=== PATIENT | female | born 1945 | race Caucasian/White ===

== ENCOUNTER 2018-03-08 10:27 | Observation (INO) | payer MEDICARE ==
[2018-03-08 11:26] LABS: Hemoglobin 12.3 gm/dL (12.5-16.0); Mean Cell Volume 95.2 fl (78-100); Mean Corpuscular Hemoglobin 30.8 pg (27-31); Mean Corpuscular Hgb Conc 32.4 g/dl (32-36); Mean Platelet Volume 8.8 fl (8-12.5); Neutrophil # 15.8 K/mm3 (1.3-6.0); Neutrophil % 86.8 % (42-75.0); Platelet Count 175 K/mm3 (150-450); Red Blood Count 3.99 M/mm3 (4.2-5.4); Red Cell Distribution Width 13.3 % (11.5-14.0); White Blood Count 18.2 K/mm3 (4.0-10.5)
[2018-03-08 11:32] LABS: Albumin * 3.3 gm/dl (3.4-5.0); BUN/Creatinine Ratio 13.2 (9.0-21.6); Bilirubin, Total 0.9 mg/dL (0.0-1.1); Ca. Corrected For Albumin 9.6 mg/dL (8.4-10.2); Calcium * 9.4 mg/dL (7.9-10.9); Carbon Dioxide 27.1 mmol/L (24-32.6); Potassium 3.1 mmol/L (3.4-4.6); Total Protein 7.5 gm/dL (6.2-8.2)
[2018-03-08] MEDS ORDERED: NORMAL SALINE 1,000 ML IV ONE (11:56)
[2018-03-08 12:05] LABS: Urine Appearance Cloudy (CLEAR); Urine Color Yellow
[2018-03-08 12:08] LABS: Urine Bilirubin Negative (NEGATIVE); Urine Ketone Negative (NEGATIVE)
[2018-03-08 12:09] LABS: Urine Blood 150 /ul (NEGATIVE); Urine Nitrite Negative (NEGATIVE); Urine Specific Gravity 1.015 SP.GR. (1.005-1.010); Urine Urobilinogen Normal (NORMAL); Urine WBC >50 /hpf (0-5)
[2018-03-08 12:10] LABS: Urine Bacteria 1+; Urine Protein 30 mg/dL (NEGATIVE); Urine RBC >50 /hpf (0-5)
[2018-03-08] MEDS ORDERED: cefTRIAXone SODIUM 1,000 MG/100 ML BAG IV ONE (12:23)
--- NOTE | 2018-03-08 12:33 | ERNOTE ---
Medical Problem HPI - Narrative Date of Service: 03/08/18 - General Chief Complaint: Fever Time Seen by Provider: 03/08/18 10:49 Source: patient Exam Limitations: no limitations - Immun/Allergies/Home Medications Immunizations: IMMUNIZATION HX Immunizations Up to Date Yes History of Influenza Vaccine Yes Hx Pneumococcal Vaccination Yes Allergies/Adverse Reactions: Allergies aspirin Allergy (Intermediate, Verified 03/08/18 10:45) Swelling of Tongue acetaminophen [From Percocet] Allergy (Mild, Verified 03/08/18 10:45) Itching chlordiazepoxide Allergy (Mild, Verified 03/08/18 10:45) Hives clidinium bromide [From Librax (with clidinium)] Allergy (Mild, Verified 03/08/18 10:45) Hives tamoxifen Adverse Reaction (Severe, Verified 03/08/18 10:45) Blood clot prochlorperazine edisylate [From Compazine] Adverse Reaction (Intermediate, Verified 03/08/18 10:45) PSEUDO SEIZURES prochlorperazine maleate [From Compazine] Adverse Reaction (Intermediate, Verified 03/08/18 10:45) PSEUDO SEIZURES ampicillin Adverse Reaction (Mild, Verified 03/08/18 10:45) Itching cefaclor [Cefaclor] Adverse Reaction (Mild, Verified 03/08/18 10:45) JOINT SWELLING ergocalciferol (vitamin D2) [From Calciferol] Adverse Reaction (Mild, Verified 03/08/18 10:45) itching with vit d3 erythromycin base [Erythromycin Base] Adverse Reaction (Mild, Verified 03/08/18 10:45) STOMACH CRAMPS levofloxacin Adverse Reaction (Mild, Verified 03/08/18 10:45) JOINT SWELLING morphine Adverse Reaction (Mild, Verified 03/08/18 10:45) Vomiting oxycodone HCl [From Percocet] Adverse Reaction (Mild, Verified 03/08/18 10:45) Itching prednisone Adverse Reaction (Mild, Verified 03/08/18 10:45) JOINT SWELLING Jqcsewz-Qid-Phl Reductase Inhibitor Adverse Reaction (Mild, Verified 03/08/18 10:45) MUSCLE ACHES Home Medications: HOME MEDICATIONS Lactase 3,000 unit PO TID PRN 08/05/13 [Last Taken 12/17/13 08:00] Multivitamin [Multi-Vitamin Daily] 1 ea PO DAILY 08/05/13 [Last Taken 12/17/13 08:00] Ascorbic Acid [Vitamin C] 1,000 mg PO DAILY 09/06/13 [Last Taken 12/17/13 08:00] Glucosamine/D3/Boswellia Sol [Osteo Bi-Flex Caplet] 1 ea PO BID 10/07/13 [Last Taken 12/17/13 08:00] Cholecalciferol (Vitamin D3) [Vitamin D] 2,000 unit PO DAILY 12/18/13 [Last Taken 12/17/13 08:00 1000] Warfarin Sodium [Coumadin] 5 mg PO MO 10/21/14 [Last Taken Unknown] Letrozole [Femara] 2.5 mg PO QPM 11/09/14 [Last Taken Unknown] Melatonin 5 mg PO DAILY 10/23/15 [Last Taken Unknown] Atorvastatin Calcium 40 mg PO DAILY 09/08/17 [Last Taken Unknown] acetaminophen 325 mg capsule 325 mg PO Q4H PRN 09/19/17 [Last Taken Unknown] blood sugar diagnostic strips See Dose Instructions .ROUTE .MEDSUPPLY #20 ea 09/19/17 [Last Taken Unknown] loratadine 10 mg tablet 10 mg PO DAILY 09/19/17 [Last Taken Unknown] omega-3 fatty acids 1,000 mg capsule 1,000 mg PO DAILY 09/19/17 [Last Taken Unknown] ramipril 10 mg capsule 10 mg PO DAILY cap 09/19/17 [Last Taken Unknown] simethicone 62.5 mg oral strips 1 strip PO QD-BID PRN 09/19/17 [Last Taken Unknown] vit C 150 mg-vit E 30 unit-lutein 5 if-dqmjosis-yfemw 3 150 mg capsule 1 cap PO DAILY 09/19/17 [Last Taken Unknown] lancets 28 gauge See Dose Instructions .ROUTE .MEDSUPPLY #25 ea 09/25/17 [Last Taken Unknown] dicyclomine 20 mg tablet 20 mg PO BID #60 tab 11/12/17 [Last Taken Unknown] metoclopramide 5 mg tablet 5 mg PO BID #90 tab 11/28/17 [Last Taken Unknown] warfarin 5 mg tablet 2.5 mg PO SUTUWETHFRSA #90 tab 11/28/17 [Last Taken Unknown] Acetaminophen [Pain Relief] 1,000 mg PO BID 12/01/17 [Last Taken Unknown] pantoprazole 40 mg tablet,delayed release 40 mg PO BID #90 tab 12/01/17 [Last Taken Unknown] ramipril 5 mg capsule 5 mg PO DAILY #30 cap 12/11/17 [Last Taken Unknown] alprazolam 0.25 mg tablet 0.25 mg PO HS #30 tab 02/18/18 [Last Taken Unknown] glipizide ER 2.5 mg tablet, extended release 24 hr 2.5 mg PO DAILY@0700 #90 tab 03/04/18 [Last Taken Unknown] metoprolol tartrate 100 mg tablet 100 mg PO BID #180 tab 03/05/18 [Last Taken Unknown] - History of Present History Narrative: patient present with c/o fever , chills, foul smelling urine, onset of symptoms yesterdaay Timing: constant, getting worse Severity: moderate Modifying Factors - (Improves): Present: other - nothing Modifying Factors - (Worsens): Present: other - nothing Review of Systems - Review of Systems Constitutional: Present: See HPI, fever, chills, weakness, fatigue, malaise EYE: Present: see HPI ENT: Present: no symptoms reported Respiratory: Present: no symptoms reported Cardiology: Present: no symptoms reported Gastrointestinal/Abdominal: Present: no symptoms reported Genitourinary: Present: See HPI, frequency, pain, dysuria Musculoskeletal: Present: no symptoms reported Skin: Present: no symptoms reported Neurological: Present: no symptoms reported Endocrine: Present: no symptoms reported Hematologic/Lymphatic: Present: no symptoms reported Psych: Present: no symptoms reported Medical History (Last Reviewed 03/08/18 @ 10:45 by Rae Valenzuela RN) Post menopausal syndrome (Chronic) Osteoarthritis (Chronic) IBS (irritable bowel syndrome) (Chronic) Hyperlipidemia (Chronic) GERD (gastroesophageal reflux disease) (Chronic) Diabetes mellitus type 2, diet-controlled (Chronic) Anemia (Chronic) Endometriosis 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 Bridges- hyperplastic polyp @ 15 cm- benign History of endometrial ablation Onset Date: ~1986 History of esophagogastroduodenoscopy (EGD) Onset Date: ~2009 Dr. Bridges- sagrario-test negative History of lumpectomy Onset Date: ~2013 with sentinal node and intraop radiation therapy - [facility] [place] History of oophorectomy Onset Date: ~2001 1987 right ovary removal, 2001 left ovary removal Port catheter in place Onset Date: ~2013 S/P epidural steroid injection Onset Date: ~2004 bbvq-l-xoye- removal Onset Date: ~2013 stereotactic core biopsy left- infiltrating ductal carcinoma Family History: Family History (Last Reviewed 03/08/18 @ 10:45 by Rae Valenzuela RN) Aunt Rheumatoid arthritis Cancer Liver Brother Benign brain tumor Father , Age 73 Rheumatoid arthritis Alcohol abuse Thrombophlebitis Cancer liver Bleeding ulcer Grandfather CHF (congestive heart failure) Grandmother Myocardial infarction Mother Heart murmur Coronary artery disease coronary artery bypass graft History of heart valve replacement Sister Osteoarthritis Uncle Prostate cancer Social History: Preferred Language Slovenian Do you have any worship or No cultural preference? Smoking Status Former smoker Have you smoked in the past 12 No months Alcohol Use none Drug Use none (Last Updated 11/18/17 @ 14:00 by YORDY Colmenares) No Social History Section defined Physical Exam - Physical Exam General Appearance: Present: mild distress Head Exam: Present: normal inspection, no evidence of injury Eye Exam: Normal inspection: bilateral, PERRL: bilateral, EOMI: bilateral Ears, Nose, Throat: Present: normal ENT inspection, normal pharynx Neck: Present: normal inspection, nontender Respiratory: Present: no respiratory distress, normal breath sounds, no accessory muscle use, chest nontender Cardiovascular/Chest: Present: regular rate, rhythm, no murmur, normal peripheral pulses Gastrointestinal/Abdominal: Present: normal bowel sounds, nontender, nondistended, soft Back Exam: Present: normal inspection, normal range of motion, no CVA tenderness, no vertebral tenderness Extremity Exam: Present: normal inspection, non-tender, normal range of motion, no edema Neurological Exam: Present: alert, oriented, normal mood/affect, no motor/se nsory deficits Skin Exam: Present: normal color, warm/dry Lymphatic Exam: Present: no adenopathy Progress - Date and Time Seen: Date and Time: 03/08/18 12:31 patient unchanged, discussed results of tests recommend to admit, case discussed with dr long, accepted for admission - Results and Orders Patient's Lab Results:: I have reviewed the patient's lab results. - Vital Signs Patient's Vital Signs:: I have reviewed the patient's vital signs. Vital Signs: Vital Signs 03/08/18 10:36 03/08/18 11:49 Temperature 38.2 C H 37.6 C Pulse Rate 122 H 115 H Respiratory Rate 18 18 Blood Pressure 126/76 142/70 O2 Sat by Pulse Oximetry 91 L 91 L - EKG EKG: NSR - X-Ray X-Ray #1 X-Ray: chest - no acute process Interpretation: Discd w/ radiologist - Progress/Reassessment Chief Complaint: Fever Progress:: Unchanged - Transfer of Care Expected Disposition: Admit Departure Clinical Impression: Urinary tract infection, Strep pharyngitis - Departure Disposition: Still a patient Condition: Stable Referrals: Reta Terry MD [Primary Care Provider] -
[2018-03-08] MEDS ORDERED: NORMAL SALINE 1,000 ML IV PRN (12:36)
[2018-03-08] MEDS ORDERED: CIPROFLOXACIN IN 5 % DEXTROSE 400 MG/200 ML BAG IV SCH ×2 (12:45→14:00)
[2018-03-08] MEDS: NORMAL SALINE 1,000 ML IV PRN ×2 (15:01→23:18)
[2018-03-08] MEDS ORDERED: ACETAMINOPHEN 325 MG TABLET PO PRN (15:03)
[2018-03-08] MEDS ORDERED: ONDANSETRON HCL/PF 2 MG/ML VIAL IV PRN (15:51)
--- NOTE | 2018-03-08 16:24 | HP ---
Chief Complaint - Chief Complaint Date of Service: 03/08/18 Time of Service: 16:20 Chief Complaint: fever, foul smelling urine History of Present Illness: 72 year old CF presented to the ER with fever/chills, strong foul smelling urine, and nausea. She denied frequency/urgency/or burning with urination. She states the fever started 2 days prior as well as the shakes/chills. She denies sore throat, cough, vomiting, abdominal pain, dizziness, AMS, or any other neurological symptoms. In the ER, her UA was + for LE, + blood, + urine WBC. She also had a + strep test. Cultures pending. She also had an elevated WBC (18.2) as well as a left shift (86.8%). She had a lactic acid of 2.4. Her K was 3.1. She was started on rocephin and normal saline in the ER. She has a pmhx of breast and skin cancer, OA, HLD, GERD, IBS. Her bp is slightly elevated and she is tachycardic. 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 Bridges- hyperplastic polyp @ 15 cm- benign History of endometrial ablation Onset Date: ~1986 History of esophagogastroduodenoscopy (EGD) Onset Date: ~2009 Dr. Bridges- sagrario-test negative History of lumpectomy Onset Date: ~2013 with sentinal node and intraop radiation therapy - [facility] [place] [facility] History of oophorectomy Onset Date: ~2001 1987 right ovary removal, 2001 left ovary removal Port catheter in place Onset Date: ~2013 S/P epidural steroid injection Onset Date: ~2004 odic-s-mviz- removal Onset Date: ~2013 stereotactic core biopsy left- infiltrating ductal carcinoma Family History: Family History (Last Reviewed 03/08/18 @ 14:01 by Suki Velazquez RN) Aunt Rheumatoid arthritis Cancer Liver Brother Benign brain tumor Father , Age 73 Rheumatoid arthritis Alcohol abuse Thrombophlebitis Cancer liver Bleeding ulcer Grandfather CHF (congestive heart failure) Grandmother Myocardial infarction Mother Heart murmur Coronary artery disease coronary artery bypass graft History of heart valve replacement Sister Osteoarthritis Uncle Prostate cancer Social History: Patient Lives/Resources Home Utilized Preferred Language Malay Do you have any zoroastrian or Yes: Faith cultural preference? Smoking Status Former smoker Have you smoked in the past 12 No months Alcohol Use none Drug Use none (Last Updated 11/18/17 @ 14:00 by YORDY Colmenares) No Social History Section defined Review Of Systems (GEN) - Review of Systems Generalized/Overall Review: Present: Chills, Fever. Absent: Weakness, Fatigue EENTM: Absent: Throat Pain, Throat Swelling Respiratory: Absent: Cough, Shortness of Breath Cardiac: Absent: Chest Pain, Edema, Palpitations Abdominal: Present: Nausea. Absent: Vomiting, Abdominal Pain, Constipation, Diarrhea Genitourinary: Present: Other - malodor. Absent: Burning, Itching, Urgency, Frequency, Hesitancy Neurological: Present: No Symptoms Reported Skin: Present: No Symptoms Reported Endocrine: Present: No Symptoms Reported Immunizations: IMMUNIZATION HX Immunizations Up to Date Yes History of Influenza Vaccine Yes Hx Pneumococcal Vaccination Yes Allergies/Adverse Reactions: Allergies Allergy/AdvReac Type Severity Reaction Status Date / Time aspirin Allergy Intermediate Swelling Verified 03/08/18 14:01 of Tongue acetaminophen [From Percocet] Allergy Mild Itching Verified 03/08/18 14:01 chlordiazepoxide Allergy Mild Hives Verified 03/08/18 14:01 clidinium bromide Allergy Mild Hives Verified 03/08/18 14:01 [From Librax (with clidinium)] tamoxifen AdvReac Severe Blood clot Verified 03/08/18 14:01 prochlorperazine edisylate AdvReac Intermediate PSEUDO Verified 03/08/18 14:01 [From Compazine] SEIZURES prochlorperazine maleate AdvReac Intermediate PSEUDO Verified 03/08/18 14:01 [From Compazine] SEIZURES ampicillin AdvReac Mild Itching Verified 03/08/18 14:01 cefaclor [Cefaclor] AdvReac Mild JOINT Verified 03/08/18 14:01 SWELLING ergocalciferol (vitamin D2) AdvReac Mild itching Verified 03/08/18 14:01 [From Calciferol] with vit d3 erythromycin base AdvReac Mild STOMACH Verified 03/08/18 14:01 [Erythromycin Base] CRAMPS levofloxacin AdvReac Mild JOINT Verified 03/08/18 14:01 SWELLING morphine AdvReac Mild Vomiting Verified 03/08/18 14:01 oxycodone HCl [From Percocet] AdvReac Mild Itching Verified 03/08/18 14:01 prednisone AdvReac Mild JOINT Verified 03/08/18 14:01 SWELLING Whyejbw-Ofc-Hsy Reductase AdvReac Mild MUSCLE Verified 03/08/18 14:01 Inhibitor ACHES Home Medications: HOME MEDICATIONS Multivitamin [Multi-Vitamin Daily] 1 ea PO 1200 08/05/13 [Last Taken 12/17/13 08:00] Glucosamine/D3/Boswellia Sol [Osteo Bi-Flex Caplet] 1 ea PO 1200,0000 10/07/13 [Last Taken 12/17/13 08:00] Cholecalciferol (Vitamin D3) [Vitamin D] 2,000 unit PO 1200 12/18/13 [Last Taken 12/17/13 08:00 1000] Warfarin Sodium [Coumadin] 5 mg PO MO 10/21/14 [Last Taken Unknown] Letrozole [Femara] 2.5 mg PO 1200 11/09/14 [Last Taken Unknown] Atorvastatin Calcium 40 mg PO 1200 09/08/17 [Last Taken Unknown] acetaminophen 325 mg capsule 325 mg PO Q4H PRN 09/19/17 [Last Taken Unknown] loratadine 10 mg tablet 10 mg PO 1200 09/19/17 [Last Taken Unknown] omega-3 fatty acids 1,000 mg capsule 1,000 mg PO 1200,0000 09/19/17 [Last Taken Unknown] vit C 150 mg-vit E 30 unit-lutein 5 sy-qkizhsuf-amisz 3 150 mg capsule 1 cap PO 1200 09/19/17 [Last Taken Unknown] Acetaminophen [Pain Relief] 1,000 mg PO 0000 12/01/17 [Last Taken Unknown] ALPRAZolam [Xanax] 0.25 mg PO TID PRN 03/08/18 [Last Taken Unknown] Ascorbic Acid [Vitamin C] 1,000 mg PO 1200 03/08/18 [Last Taken Unknown] Dicyclomine HCl [Bentyl] 20 mg PO 1200,0000 03/08/18 [Last Taken Unknown] Ezetimibe [Zetia] 10 mg PO 1200 03/08/18 [Last Taken Unknown] Metoclopramide HCl [Reglan] 5 mg PO 1200,0000 03/08/18 [Last Taken Unknown] Metoprolol Tartrate [Lopressor] 100 mg PO 1200,0000 03/08/18 [Last Taken Unknown] Ondansetron HCl [Zofran] 4 mg PO Q6H PRN 03/08/18 [Last Taken Unknown] Pantoprazole Sodium [Protonix] 40 mg PO 1200,0000 03/08/18 [Last Taken Unknown] Ramipril 5 mg PO 1200 03/08/18 [Last Taken Unknown] Warfarin Sodium 2.5 mg PO SUTUWETHFRSA 03/08/18 [Last Taken Unknown] glipiZIDE [Glucotrol Xl] 2.5 mg PO 1200 03/08/18 [Last Taken Unknown] Exam - Exam Vital Signs: Vital Signs - Last Taken Temp 36.8 C 03/08/18 13:39 Pulse 98 03/08/18 14:23 Resp 14 03/08/18 13:39 BP 153/79 H 03/08/18 13:39 Pulse Ox 93 03/08/18 13:39 Constitutional: Present: Alert, Oriented x3, Mild distress - ill appearing ENT Exam: Present: pharyngeal erythema. Absent: tonsillar exudate Neck: Present: lymphadenopathy (L) - anterior Respiratory: Present: lungs clear, normal breath sounds Cardiovascular/Chest: Present: normal peripheral pulses, tachycardia. Absent: edema Abdomen: Present: Normal bowel sounds, soft, nontender, no rebound tenderness. Absent: CVA tenderness /Rectal: Present: Exam deferred Skin Exam: Present: diaphoresis Appearance: Present: appropriate appearance, appropriate insight Eye contact: Present: cooperative, good eye contact Thoughts: Present: normal thought pattern, normal mood /affect Diagnostic Studies: Abnormal Lab Results 03/08/18 03/08/18 03/08/18 Range/Units 11:00 11:00 11:00 WBC 18.2 H (4.0-10.5) K/mm3 RBC 3.99 L (4.2-5.4) M/mm3 Hgb 12.3 L (12.5-16.0) gm/dL Immature Gran % (Auto) 0.70 H (0.001-0.429) % Immature Gran # (Auto) 0.12 H (0.000-0.0310) K/mm3 Neutrophils % 86.8 H (42-75.0) % Lymphocytes % 6.3 L (20-51) % Neutrophils # 15.8 H (1.3-6.0) K/mm3 Lymphocytes # 1.14 L (1.5-3.5) k/mm3 Monocytes # 1.1 H (0.0-1.0) k/mm3 Potassium 3.1 L (3.4-4.6) mmol/L Anion Gap 14.0 H (6.8-13.8) mmol/L Creatinine 1.52 H (0.4-1.4) mg/dL Est GFR (Non-Af Amer) 36 L (60-130) mL/min Random Glucose 169 H (70-110) mg/dL Lactic Acid, Venous 2.4 H* (0.4-2.0) mmol/L Albumin 3.3 L (3.4-5.0) gm/dl Urine Protein (NEGATIVE) mg/dL Urine Blood (NEGATIVE) /ul Ur Leukocyte Esterase (NEGATIVE) /ul Urine RBC (0-5) /hpf Urine WBC (0-5) /hpf Urine Bacteria (NONE) Group A Strep Rapid (NEGATIVE) 03/08/18 03/08/18 Range/Units 11:48 11:48 WBC (4.0-10.5) K/mm3 RBC (4.2-5.4) M/mm3 Hgb (12.5-16.0) gm/dL Immature Gran % (Auto) (0.001-0.429) % Immature Gran # (Auto) (0.000-0.0310) K/mm3 Neutrophils % (42-75.0) % Lymphocytes % (20-51) % Neutrophils # (1.3-6.0) K/mm3 Lymphocytes # (1.5-3.5) k/mm3 Monocytes # (0.0-1.0) k/mm3 Potassium (3.4-4.6) mmol/L Anion Gap (6.8-13.8) mmol/L Creatinine (0.4-1.4) mg/dL Est GFR (Non-Af Amer) (60-130) mL/min Random Glucose (70-110) mg/dL Lactic Acid, Venous (0.4-2.0) mmol/L Albumin (3.4-5.0) gm/dl Urine Protein 30 H (NEGATIVE) mg/dL Urine Blood 150 H (NEGATIVE) /ul Ur Leukocyte Esterase 500 H (NEGATIVE) /ul Urine RBC >50 H (0-5) /hpf Urine WBC >50 H (0-5) /hpf Urine Bacteria 1+ H (NONE) Group A Strep Rapid Positive H (NEGATIVE) Laboratory Results WBC 18.2 K/mm3 (4.0-10.5) H 03/08/18 11:00 RBC 3.99 M/mm3 (4.2-5.4) L 03/08/18 11:00 Hgb 12.3 gm/dL (12.5-16.0) L 03/08/18 11:00 Hct 38.0 % (37.0-47.0) 03/08/18 11:00 MCV 95.2 fl (78-100) 03/08/18 11:00 MCH 30.8 pg (27-31) 03/08/18 11:00 MCHC 32.4 g/dl (32-36) 03/08/18 11:00 RDW 13.3 % (11.5-14.0) 03/08/18 11:00 Plt Count 175 K/mm3 (150-450) 03/08/18 11:00 MPV 8.8 fl (8-12.5) 03/08/18 11:00 Immature Gran % (Auto) 0.70 % (0.001-0.429) H 03/08/18 11:00 Immature Gran # (Auto) 0.12 K/mm3 (0.000-0.0310) H 03/08/18 11:00 Neutrophils % 86.8 % (42-75.0) H 03/08/18 11:00 Lymphocytes % 6.3 % (20-51) L 03/08/18 11:00 Monocytes % 5.8 % (0.0-9) 03/08/18 11:00 Eosinophils % 0.2 % (0.0-3.0) 03/08/18 11:00 Basophils % 0.2 % (0.0-1.0) 03/08/18 11:00 Nucleated RBC % 0.0 k/mm3 (0-1) 03/08/18 11:00 Neutrophils # 15.8 K/mm3 (1.3-6.0) H 03/08/18 11:00 Lymphocytes # 1.14 k/mm3 (1.5-3.5) L 03/08/18 11:00 Monocytes # 1.1 k/mm3 (0.0-1.0) H 03/08/18 11:00 Eosinophils # 0.0 k/mm3 (0.0-0.7) 03/08/18 11:00 Absolute Basophils 0.0 k/mm3 (0.0-0.1) 03/08/18 11:00 Sodium 138 mmol/L (132-142) 03/08/18 11:00 Plasma Sodium 139 mmol/L (130-142) 03/08/18 11:00 Potassium 3.1 mmol/L (3.4-4.6) L 03/08/18 11:00 Chloride 100 mmol/L (97-106) 03/08/18 11:00 Carbon Dioxide 27.1 mmol/L (24-32.6) 03/08/18 11:00 Anion Gap 14.0 mmol/L (6.8-13.8) H 03/08/18 11:00 BUN 20 mg/dL (3-23) 03/08/18 11:00 Creatinine 1.52 mg/dL (0.4-1.4) H 03/08/18 11:00 Est GFR (Non-Af Amer) 36 mL/min (60-130) L 03/08/18 11:00 BUN/Creatinine Ratio 13.2 (9.0-21.6) 03/08/18 11:00 Random Glucose 169 mg/dL (70-110) H 03/08/18 11:00 Lactic Acid, Venous 1.7 mmol/L (0.4-2.0) 03/08/18 14:24 Calcium 9.4 mg/dL (7.9-10.9) 03/08/18 11:00 Calcium Adj for Albumin 9.6 mg/dL (8.4-10.2) 03/08/18 11:00 Total Bilirubin 0.9 mg/dL (0.0-1.1) 03/08/18 11:00 AST 15 U/L (0-48) 03/08/18 11:00 ALT 20 U/L (19-67) 03/08/18 11:00 Alkaline Phosphatase 85 U/L (50-170) 03/08/18 11:00 Total Protein 7.5 gm/dL (6.2-8.2) 03/08/18 11:00 Albumin 3.3 gm/dl (3.4-5.0) L 03/08/18 11:00 Urine Color Yellow 03/08/18 11:48 Urine Appearance Cloudy (CLEAR) 03/08/18 11:48 Urine pH 6.0 pH (5.0-7.0) 03/08/18 11:48 Ur Specific [place] 1.015 SP.GR. (1.005-1.010) 03/08/18 11:48 Urine Protein 30 mg/dL (NEGATIVE) H 03/08/18 11:48 Urine Glucose (UA) Negative mg/dL (NEGATIVE) 03/08/18 11:48 Urine Ketones Negative mg/dL (NEGATIVE) 03/08/18 11:48 Urine Blood 150 /ul (NEGATIVE) H 03/08/18 11:48 Urine Nitrate Negative (NEGATIVE) 03/08/18 11:48 Urine Bilirubin Negative mg/dl (NEGATIVE) 03/08/18 11:48 Prot Sulfosalicylic Acd 1+ mg/dL (0) 03/08/18 11:48 Urine Urobilinogen Normal EU/dl (NORMAL) 03/08/18 11:48 Ur Leukocyte Esterase 500 /ul (NEGATIVE) H 03/08/18 11:48 Urine RBC >50 /hpf (0-5) H 03/08/18 11:48 Urine WBC >50 /hpf (0-5) H 03/08/18 11:48 Ur Epithelial Cells 0-5 /hpf (0-5) 03/08/18 11:48 Urine Bacteria 1+ (NONE) H 03/08/18 11:48 Urine Culture Comments Culture to follow 03/08/18 11:48 Influenza Type A Ag Negative (NEGATIVE) 03/08/18 11:48 Influenza Type B Ag Negative (NEGATIVE) 03/08/18 11:48 Group A Strep Rapid Positive (NEGATIVE) H 03/08/18 11:48 Assessment/Plan - Narrative Narrative: Will continue the rocephin to cover both UTI and Strep. Waiting for cultures to speciate, should likely be sensitive to this abx and can go home on omnicef if sensitive. Will continue fluids overnight (has had one bolus), will recheck labs in the am. Tylenol for fever/aches. Will replace potassium with orals. Restarted her home medications. will start her on a CC diet and perform accuchecks ACHS. SCDs for DVT ppx due to history, though likely home tomorrow as long as she has no set backs. - Assessment/Plan (1) Acute cystitis with hematuria Problem: Acute (2) Strep pharyngitis Problem: Acute (3) Hypokalemia Problem: Acute (4) Diabetes mellitus type 2, diet-controlled Problem: Chronic (5) Osteoarthritis Problem: Chronic (6) IBS (irritable bowel syndrome) Problem: Chronic (7) Hyperlipidemia Problem: Chronic Qualifiers: Hyperlipidemia type: mixed hyperlipidemia Qualified Code(s): E78.2 - Mixed hyperlipidemia (8) GERD (gastroesophageal reflux disease) Problem: Chronic Qualifiers: Esophagitis presence: esophagitis presence not specified Qualified Code(s): K21.9 - Gastro-esophageal reflux disease without esophagitis
[2018-03-08] MEDS ORDERED: ONDANSETRON HCL 4 MG TABLET PO PRN (18:15)
[2018-03-08] MEDS ORDERED: ALPRAZolam 0.25 MG TABLET PO PRN (18:15)
[2018-03-08] MEDS ORDERED: WARFARIN SODIUM 2.5 MG TABLET PO SCH (19:30)
[2018-03-08] MEDS ORDERED: POTASSIUM CHLORIDE 20 MEQ TABLET.SA PO ONE (19:30)
[2018-03-08] MEDS ORDERED: DICYCLOMINE HCL 10 MG CAPSULE ONE (23:05)
[2018-03-09] MEDS ORDERED: PANTOPRAZOLE SODIUM 40 MG TABLET.EC PO SCH
[2018-03-09] MEDS ORDERED: METOCLOPRAMIDE HCL 5 MG TABLET PO SCH
[2018-03-09] MEDS ORDERED: METOPROLOL TARTRATE 100 MG TABLET PO SCH
[2018-03-09] MEDS ORDERED: DICYCLOMINE HCL 20 MG TABLET PO SCH
[2018-03-09] MEDS ORDERED: ACETAMINOPHEN 500 MG TABLET PO SCH
[2018-03-09 06:41] LABS: Hemoglobin 10.7 gm/dL (12.5-16.0); Mean Cell Volume 98.6 fl (78-100); Mean Corpuscular Hgb Conc 31.5 g/dl (32-36); Mean Platelet Volume 8.9 fl (8-12.5); Neutrophil # 10.7 K/mm3 (1.3-6.0); Neutrophil % 77.6 % (42-75.0); Platelet Count 151 K/mm3 (150-450); Red Blood Count 3.45 M/mm3 (4.2-5.4); Red Cell Distribution Width 13.8 % (11.5-14.0); White Blood Count 13.7 K/mm3 (4.0-10.5)
[2018-03-09 08:01] LABS: Albumin * 2.7 gm/dl (3.4-5.0); Anion Gap 12.5 mmol/L (6.8-13.8); BUN/Creatinine Ratio 13.2 (9.0-21.6); Bilirubin, Total 0.3 mg/dL (0.0-1.1); Ca. Corrected For Albumin 8.9 mg/dL (8.4-10.2); Calcium * 8.2 mg/dL (7.9-10.9); Carbon Dioxide 27.7 mmol/L (24-32.6); Potassium 4.2 mmol/L (3.4-4.6); Total Protein 6.4 gm/dL (6.2-8.2)
[2018-03-09] MEDS: NORMAL SALINE 1,000 ML IV PRN (08:55)
--- NOTE | 2018-03-09 10:39 | DS ---
(1) Acute cystitis with hematuria Problem: Acute (2) Strep pharyngitis Problem: Acute (3) Hypokalemia Problem: Resolved (4) Diabetes mellitus type 2, diet-controlled Problem: Chronic (5) Osteoarthritis Problem: Chronic (6) IBS (irritable bowel syndrome) Problem: Chronic (7) Hyperlipidemia Problem: Chronic Qualifiers: Hyperlipidemia type: mixed hyperlipidemia Qualified Code(s): E78.2 - Mixed hyperlipidemia (8) GERD (gastroesophageal reflux disease) Problem: Chronic Qualifiers: Esophagitis presence: esophagitis presence not specified Qualified Code(s): K21.9 - Gastro-esophageal reflux disease without esophagitis Description of Stay: Patient was brought in due to foul smelling urine, fever/chills. She was found to have a UTI as well as tested postive for strep (asymptomatic). Her initial labs showed her to have a WBC at 18 which came down to 13 as well as a left shift that improved overnight. She had an elevated lactic acid @ 2.4 that resolved with IV hydration. She was started on Rocephin in the ER. Cipro was held due to her allergy to levaquin. While here she had an uneventful stay, her vitals were stable and she was afebrle. She was discharged home in stable condition and started on omnicef. Will make sure urine culture is sensitive to this medication, will send in another if needed. Procedures Performed: none Results and Findings: Pending Mircobiology Results 03/08/18 11:48 Urine,Clean Catch Urine Culture - Preliminary Gram Negative Bacilli Lab Pending Results 03/08/18 11:00: WBC 18.2 H, RBC 3.99 L, Hgb 12.3 L, Hct 38.0, MCV 95.2, MCH 30. 8, MCHC 32.4, RDW 13.3, Plt Count 175, MPV 8.8, Immature Gran % (Auto) 0.70 H, Immature Gran # (Auto) 0.12 H, Neutrophils % 86.8 H, Lymphocytes % 6.3 L, Monocytes % 5.8, Eosinophils % 0.2, Basophils % 0.2, Nucleated RBC % 0.0, Neutrophils # 15.8 H, Lymphocytes # 1.14 L, Monocytes # 1.1 H, Eosinophils # 0.0, Absolute Basophils 0.0 03/08/18 11:00: Sodium 138, Plasma Sodium 139, Potassium 3.1 L, Chloride 100, Carbon Dioxide 27.1, Anion Gap 14.0 H, BUN 20, Creatinine 1.52 H, Est GFR (Non- Af Amer) 36 L, BUN/Creatinine Ratio 13.2, Random Glucose 169 H, Calcium 9.4, Calcium Adj for Albumin 9.6, Total Bilirubin 0.9, AST 15, ALT 20, Alkaline Phosphatase 85, Total Protein 7.5, Albumin 3.3 L 03/08/18 11:00: Lactic Acid, Venous 2.4 H* 03/08/18 11:48: Urine Color Yellow, Urine Appearance Cloudy, Urine pH 6.0, Ur Specific [place] 1.015, Urine Protein 30 H, Urine Glucose (UA) Negative, Urine Ketones Negative, Urine Blood 150 H, Urine Nitrate Negative, Urine Bilirubin Negative, Prot Sulfosalicylic Acd 1+, Urine Urobilinogen Normal, Ur Leukocyte Esterase 500 H, Urine RBC >50 H, Urine WBC >50 H, Ur Epithelial Cells 0-5, Urine Bacteria 1+ H, Urine Culture Comments Culture to follow 03/08/18 11:48: Influenza Type A Ag Negative, Influenza Type B Ag Negative 03/08/18 11:48: Group A Strep Rapid Positive H 03/08/18 14:24: Lactic Acid, Venous 1.7 03/09/18 06:05: WBC 13.7 H D, RBC 3.45 L, Hgb 10.7 L, Hct 34.0 L, MCV 98.6, MCH 31.0, MCHC 31.5 L, RDW 13.8, Plt Count 151, MPV 8.9, Immature Gran % (Auto) 0.70 H, Immature Gran # (Auto) 0.09 H, Neutrophils % 77.6 H, Lymphocytes % 11.5 L, Monocytes % 8.7, Eosinophils % 1.2, Basophils % 0.3, Nucleated RBC % 0.0, Neutrophils # 10.7 H, Lymphocytes # 1.58, Monocytes # 1.2 H, Eosinophils # 0.2, Absolute Basophils 0.0 03/09/18 06:05: Sodium 145 H, Plasma Sodium 145 H, Potassium 4.2 D, Chloride 109 H, Carbon Dioxide 27.7, Anion Gap 12.5, BUN 18, Creatinine 1.36, Est GFR (Non-Af Amer) 41 L, BUN/Creatinine Ratio 13.2, Random Glucose 105 D, Calcium 8.2, Calcium Adj for Albumin 8.9, Total Bilirubin 0.3, AST 19, ALT 19, Alkaline Phosphatase 70, Total Protein 6.4, Albumin 2.7 L Discharge Location: Home Disposition: Home self-care Condition: Stable Discharge Activity: Activity as tolerated Discharge Diet: Consistent carbs Referrals: Reta Terry MD [Primary Care Provider] - Additional Patient Instructions (free text): -Please make TCM appointment unless prison discharge. Thank you! Stefanie @ [phone]. Prescriptions (Any new or edited meds): Cefdinir [Omnicef] 300 mg PO Q12H #20 cap Complete Home Medications List: Complete Home Medication List: Multivitamin [Multi-Vitamin Daily] 1 ea PO 1200 08/05/13 Glucosamine/D3/Boswellia Sol [Osteo Bi-Flex Caplet] 1 ea PO 1200,10/07/13 Cholecalciferol (Vitamin D3) [Vitamin D] 2,000 unit PO 1200 12/18/13 Warfarin Sodium [Coumadin] 5 mg PO MO 10/21/14 Letrozole [Femara] 2.5 mg PO 1200 11/09/14 Atorvastatin Calcium 40 mg PO 119909/08/17 acetaminophen 325 mg capsule 325 mg PO Q4H PRN 09/19/17 loratadine 10 mg tablet 10 mg PO 119909/19/17 omega-3 fatty acids 1,000 mg capsule 1,000 mg PO 1200,09/19/17 vit C 150 mg-vit E 30 unit-lutein 5 [id number] 3 150 mg capsule 1 cap PO 1200 09/19/17 Acetaminophen [Pain Relief] 1,000 mg PO 0000 12/01/17 ALPRAZolam [Xanax] 0.25 mg PO TID PRN 03/08/18 Ascorbic Acid [Vitamin C] 1,000 mg PO 119903/08/18 Dicyclomine HCl [Bentyl] 20 mg PO 1200,03/08/18 Ezetimibe [Zetia] 10 mg PO 1200 03/08/18 Metoclopramide HCl [Reglan] 5 mg PO 1200,03/08/18 Metoprolol Tartrate [Lopressor] 100 mg PO 1200,0000 12/30/18 Ondansetron HCl [Zofran] 4 mg PO Q6H PRN 03/08/18 Pantoprazole Sodium [Protonix] 40 mg PO 1200,0000 03/08/18 Ramipril 5 mg PO 1200 03/08/18 Warfarin Sodium 2.5 mg PO [id number] 03/08/18 glipiZIDE [Glucotrol Xl] 2.5 mg PO 1200 03/08/18 Cefdinir [Omnicef] 300 mg PO Q12H #20 cap 03/09/18
[2018-03-09 10:59] VITALS: BP 158/74
[2018-03-09] MEDS ORDERED: RAMIPRIL 2.5 MG CAPSULE PO SCH (12:00)
[2018-03-09] MEDS ORDERED: EZETIMIBE 10 MG TABLET PO SCH (12:00)
[2018-03-09] MEDS ORDERED: NON-FORMULARY 1 DOSE DOSE (Letrozole [Femara] 2.5 MG) PO SCH (12:00)
[2018-03-09] MEDS ORDERED: glipiZIDE 2.5 MG TAB.SR.24H PO SCH (12:00)
[2018-03-09] MEDS ORDERED: LORATADINE 10 MG TABLET PO SCH (12:00)
[2018-03-09] MEDS ORDERED: ROSUVASTATIN CALCIUM 20 MG TABLET PO SCH (12:00)
[2018-03-09] MEDS ORDERED: WARFARIN SODIUM 5 MG TABLET PO SCH (17:00)
== END 2018-03-09 11:35 | disposition home or self-care (01) ==
LOC: ER 10:27 → INTOOBSV 12:27 → MS 12:27
PROVIDERS: ADMIT Family Medicine; ATTEND Internal Medicine
DX: N39.0 Urinary tract infection, site not specified
CPT/HCPCS: 36415; 71020; 71046; 80053; 81001; 83605; 85025; 87040; 87086; 87400; 87430; 87449; 96365; 96366; 96367; 96375; 99285; G0378; J2405